=== PATIENT | female | born 1960 | race Caucasian/White ===

== ENCOUNTER 2024-06-01 08:29 | Outpatient (REF) | payer OTHER, SELFPAY ==
--- NOTE | ~2024-06-01 | XR_ITS ---
EXAMINATION: XR KNEE, LEFT XR KNEE AP STANDING CLINICAL INFORMATION: Pain. COMPARISON: None TECHNIQUE: Lateral and axial views of the left knee were obtained. AP bilateral standing view of the knees was obtained. FINDINGS: Bony alignment and mineralization are normal. The lateral and medial joint space compartments of the right knee are well-maintained. The medial joint space compartment of the left knee is mildly narrowed. The left lateral and patellofemoral compartments are well-maintained. No fracture, dislocation or left knee joint effusion is seen. There is no significant varus or valgus configuration. There are atherosclerotic calcifications of the bilateral thighs. No foreign body is seen. XR/XR knee RT 1V IMPRESSION: 1. No fracture, dislocation or left knee joint effusion is seen. 2. The lateral and medial joint space compartments of the right knee are well-maintained. 3. There is mild osteoarthritic change of the medial joint space compartment of the left knee. Electronically signed by: Wicho Peterson MD 06/28/2024 07:32 PM EDT
--- NOTE | ~2024-06-01 | XR_ITS ---
EXAMINATION: XR KNEE, LEFT XR KNEE AP STANDING CLINICAL INFORMATION: Pain. COMPARISON: None TECHNIQUE: Lateral and axial views of the left knee were obtained. AP bilateral standing view of the knees was obtained. FINDINGS: Bony alignment and mineralization are normal. The lateral and medial joint space compartments of the right knee are well-maintained. The medial joint space compartment of the left knee is mildly narrowed. The left lateral and patellofemoral compartments are well-maintained. No fracture, dislocation or left knee joint effusion is seen. There is no significant varus or valgus configuration. There are atherosclerotic calcifications of the bilateral thighs. No foreign body is seen. XR/XR knee LT 3V IMPRESSION: 1. No fracture, dislocation or left knee joint effusion is seen. 2. The lateral and medial joint space compartments of the right knee are well-maintained. 3. There is mild osteoarthritic change of the medial joint space compartment of the left knee. Electronically signed by: Wicho Peterson MD 06/28/2024 07:32 PM EDT
== END 2024-06-01 08:30 | disposition home or self-care (01) ==
LOC: HO.HOSX 08:29
PROVIDERS: Visit Provider Physician Assistant
DX: M25.562 Pain in left knee (principal); M25.561 Pain in right knee; S83.207A Unspecified tear of unspecified meniscus, current injury, left knee, initial encounter; M17.0 Bilateral primary osteoarthritis of knee
CPT/HCPCS: 20610; 73560; 73562; J1010

== ENCOUNTER 2024-06-01 09:34 | Outpatient (AMB) | payer OTHER, SELFPAY ==
--- NOTE | 2024-06-01 09:52 | MHC.OFFVIS ---
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 MRI done. Patient reports pain for about 2 years that she believes is from falling on her knee, she also slipped that same day. She has ongoing pain that is located around her kneecap and radiates down her leg. States her knee frequently gives out. Finds no relief with ibuprofen. Allergies nitroglycerin [NITROGLYCERIN] Allergy (Unknown, Unverified 07/04/20 16:44) BOTTOMS OUT BP pregabalin [From LYRICA] Allergy (Unknown, Unverified 07/04/20 16:44) DEPRESSION bee stings Allergy (Uncoded 06/01/24 10:11) swelling, syncope HPI HPI FINANCIAL COUNSELOR- Left medial meniscus tear: Details: 64-year-old female who presents to the office today for an evaluation of left knee pain. She reports she has pain for about 2 years that is believes is from falling on her knee and also slipped that same day. She currently states she has ongoing pain and swelling around her kneecap and radiates down her leg. Her pain is aggravated with prolonged standing and getting up from sitting. She also mentions her knee frequently gives out. She finds no relief with ibuprofen. [facility] Surgical History (Updated 06/01/24 @ 10:13 by DAVID Mark) Hx of neck surgery History of surgery on upper extremity Hx of foot surgery Hx of appendectomy Hx of cholecystectomy History of section Social History (Updated 06/01/24 @ 10:13 by DAVID Mark) Patient Tobacco Use Status: Former Tobacco user Current occupational status: unemployed Review of Systems Const All systems reviewed & are unremarkable except as noted in HPI and below Physical Exam Vital Signs: BMI result Body Mass Index 30.7 Const General: cooperative, healthy appearing, comfortable, no acute distress, well developed and alert Orientation/consciousness: patient oriented x3 HEENT Head: Yes normal to inspection, Yes normocephalic and Yes atraumatic Eyes General: appearance normal, both eyes and all related structures Resp Effort & Inspection: normal respiratory effort and able to speak in complete sentences Cardio Rate: regular rate Peripheral pulses: Peripheral pulses 2+ throughout GI Palpation (GI): Soft to palpation Skin Lesions: no lesions Rashes: no rashes Neuro General: patient oriented x3 Extrem Other: Left knee: Skin intact, no erythema or joint effusion. Tenderness along the medial and lateral joint line. Full ROM with crepitus. Positive Jeremy?s. No ligamentous laxity. NVI. ? Office Procedures Joint Injection/Aspiration Joint Injection/Aspiration Primary Site: left knee Prep: site was prepped using aseptic technique, ethochloride spray was applied and injection warnings given Injected: 80 mg of, DepoMedrol, with 8 mL of, 1% plain lidocaine and in the joint Approach Used: anterolateral Procedure: The patient tolerated the procedure well and there was some relief with the local anesthesia Coding 07382 - Glenohumeral/Tronchanteric Bursa/Intraarticular Procedure code (CPT) selection complete Results Reviewed Results Reviewed: Xrays were obtained in the office today and personally reviewed by me of the let knee show moderate oa Left knee MRI 10/12/23 Assessment & Plan Assessment & Plan (1) Osteoarthritis of left knee: Code(s): M17.12 - Unilateral primary osteoarthritis, left knee Category: Medical (2) Tear of meniscus of left knee: Code(s): S83.207A - Unspecified tear of unspecified meniscus, current injury, left knee, initial encounter Category: Medical Plan I saw and evaluated the patinet. She has both OA and a root tear and we discussed options today which include surgical vs nonsurgical management. Root repair is contra indicated given age and OA and TKA is too agressive given surrent symptoms. Knee with meniscectomy may benefit her but it may not and she is not interested in taking sucha a chance. I recommend inejction and continue activity as tolerated. The patient did consent to move forward with the left knee injection, which was tolerated well. I recommended rest, ice, and elevation and OTC anti-inflammatories as needed for discomfort. If symptoms persist or worsen over the next 6-8 weeks, patient will contact the office, otherwise follow-up as needed. Orders: Orders XR knee LT 3V 06/01/24 M25.562 - Pain in left knee XR knee RT 1V 06/01/24 M25.561 - Pain in right knee Patient Instructions: Scribed for Ta-Maribel Cespedes PA-C, by Charlie Carrera certified ophthalmic medical technician, on 06/01/2024 at 10:00 AM EST.? I, Astrid Cespedes PA-C, have personally reviewed and agree with the information entered by the scribe. Coding Level of Care Code New Pt Level 4 (10960) Diagnoses Osteoarthritis of left knee M17.12 Tear of meniscus of left knee S83.207A CPT Codes Coding - Joint 7: 04705 - Glenohumeral/Tronchanteric Bursa/Intraarticular ([id number])
[2024-06-01 10:18] VITALS: BMI 30.7
== END 2024-06-01 11:09 | disposition home or self-care (01) ==
PROVIDERS: PCP Internal Medicine; Visit Provider Physician Assistant
DX: M17.12 Unilateral primary osteoarthritis, left knee (principal); S83.207A Unspecified tear of unspecified meniscus, current injury, left knee, initial encounter
CPT/HCPCS: 20610; 99203

== ENCOUNTER 2024-10-06 08:01 | Outpatient (REF) | payer OTHER, SELFPAY ==
--- OUTSIDE RECORDS SUMMARY | 2024-10-06 08:03 | XMS_ITS | Data Portability ---
Author Organization [facility], [address] Address [address] [place] [address] Care Team Providers Care Set Decorator Name Role Phone CAROL FERNANDO Primary Care Provider Assessment No assessment recorded. Plan of Treatment Reminders Order Date Submit Date Provider Last Modified By Organization Details Last Modified Time Details Appointments None recorded. Lab None recorded. Referral emergency medicine referral - fall and injured right shoulder and right sided chest wall pain . no acute fracture seen but patient is in too much pain and having difficulty taking deep breath. need further evaluation and treatment. 2022 023 [facility] Emergency Room, [address] [place], [address], 09:56:38 Procedures None recorded. Surgeries None recorded. Imaging XR, ribs, unilateral, w/ PA chest 2022 023 [facility], [address] [place] [address], [address], 09:53:28 Medication Orders None recorded. Patient TargetsNo targets recorded. Patient Instructions Encounter Date Encounter Id Patient Instructions Last Modified By Organization Details Last Modified Time 05/13/2023 [id number] Elevate injured extremity to help decrease swelling Ice the area 15 minutes every 3-4 hours ibuprofen and/or tylenol as needed for pain Follow up with [facility] or your pcp if the injury fails to heal in the coming weeks [email or web address] Not available 05/13/2023 08:49:17 Go to Emergency room with any shortness of breath Go to the Emergency Room immediately if your symptoms worsen or you develop new symptoms that concern you. We recommend that you follow up with your primary care physician within one week. Failure to follow up as recommended may result in significant adverse health consequences. It is not uncommon for antibiotics to cause diarrhea and/or yeast infections Consider the addition of probiotics and/or yogurt to your diet to help prevent or lessen the adverse effects of these medications. Apply ice to area several times daily Avoid shallow breathing and take several deep breaths per hour so as not to develop Pneumonia [email or web address] Not available 05/13/2023 08:49:26 Reason for Referral Emergency Medicine Referral for Anterior chest wall pain fall and injured right shoulder and right sided chest wall pain . no acute fracture seen but patient fall and injured right shoulder and right sided chest wall pain . no acute fracture seen but patient is in too much pain and having difficulty taking deep breath. need further evaluation and treatment. Referring Physician: Jong Herrmann, Urgent Care, Encounter Date: 05/13/2023 Results Created Date Observation Date Name Description Value Unit Range Abnormal Flag Note LastModifiedBy Organization Detail LastModifiedTime 05/13/2005/13/2023 XR, ribs, unila teral , w/ PA chest No observ ation record ed. [email or web address] [facility] [address] [place], [address], 05/13/2023 10:52:14 05/13/20 23 05/13/2023 XR, ribs, unila teral , w/ PA chest No observ ation record ed. [email or web address] [facility] [address] [place], [address], 05/13/2023 10:52:14 05/13/20 XR, ribs, unila teral , w/ PA chest No observ ation record ed. [facility] [address] [place], [address], 05/13/2023 13:50:19 Result Notes None recorded. Problems Name Problem SNOMED Code Status Onset Date Resolution Date Notes Provider Name and Address Organization Details Recorded Time Myocardial infarction 07314126 Completed 05/13/2023 Josie Ruszala null, PA - [facility] 08:15:37 Irritable bowel syndrome 52355063 Active Josie Ruszala null, PA - [facility] 3 08:15:44 Depressive disorder 91668769 Active Josie Ruszala null, PA - [facility] 08:15:50 Degeneratio n of spine 512749458 Active Josie Ruszala null, PA - [facility] 3 08:15:59 Ulcerative colitis 84443248 Active Josie Ruszala null, PA - [facility] 08:16:07 Acid reflux 158829055 Active Josie Ruszala null, PA - [facility] 08:16:14 Problem Notes None recorded. Procedures Surgical History Date Name Laterality Status Provider Name and Address Organization Details Recorded Time delivery completed Josie Ruszala PA - [facility] 05/13/2023 08:16:57 procedure on elbow completed Josie Ruszala PA - [facility] 05/13/2023 08:17:15 Appendectomy completed Josie Ruszala PA - [facility] 05/13/2023 08:17:20 cholecystectomy completed Josie Ruszala PA - [facility] 05/13/2023 08:17:33 hysterectomy completed Josie Ruszala PA - [facility] 05/13/2023 08:17:42 Imaging Results Imaging Date Name Status [facility]Modified by [facility] Details LastModified Time 05/13/2023 XR, ribs, unilateral, w/ PA chest completed [email or web address] [facility] [address] [place], [address], 05/13/2023 10:52:14 05/13/2023 XR, ribs, unilateral, w/ PA chest completed [email or web address] [facility] [address] [place], [address], 05/13/2023 10:52:14 05/13/2023 XR, ribs, unilateral, w/ PA chest completed [facility] [address] [facility] [place], [address], 05/13/2023 13:50:19 Procedure Notes None recorded. Medical Equipment None Reported. Allergies Allergen ID Allergen Name Allergen Category Reaction Reaction Severity Criticality Documentation Date Start Date Code Code System Note Provider Name and Address Organization Details Recorded Time 528660 Lyrica medicatio n Not available Not available Not available 05/13/2023 58447 1 RxNorm [facility] 3 08:12:54 841134 hornet venom environme nt Not available Not available Not available 05/13/2023 [facility] 08:13:00 Medications Name Sig Start Date Stop Date Status Note LastModified by Organization Details LastModified Time carisoprodo l 350 mg tablet active Not Available Not Available Not Available gabapentin 600 mg tablet active Not Available Not Available Not Available doxycycline hyclate 100 mg capsule TAKE ONE CAPSULE BY MOUTH TWICE A DAY WITH FOOD FOR 5 DAYS 05/13 completed Not Available Not Available Not Available ibuprofen 800 mg tablet active Not Available Not Available Not Available fluconazole 200 mg tablet TAKE ONE TABLET BY MOUTH ONE TIME DAILY FOR 1 DAY 05/13 completed Not Available Not Available Not Available meloxicam 15 mg tablet TAKE 1 TABLET BY MOUTH EVERY DAY 05/13 completed Not Available Not Available Not Available minoxidil 2.5 mg tablet active Not Available Not Available Not Available magnesium oxide 400 mg (241.3 mg magnesium) tablet TAKE 1 TABLET BY MOUTH EVERY DAY active Not Available Not Available No t Available lorazepam 0.5 mg tablet active Not Available Not Available Not Available pantoprazol e 40 mg tablet,leonardo yed release active Not Available Not Available Not Available metoprolol tartrate 50 mg tablet active Not Available Not Available No t Available budesonide DR - ER 3 mg capsule,del ayed,extend ed release TAKE 3 CAPSULES BY MOUTH DAILY IN THE MORNING FOR 90 DAYS active Not Available Not Available No t Available paroxetine 40 mg tablet active Not Available Not Available Not Available diclofenac 1 % topical gel APPLY 4 GM TOPICALLY 4 TIMES A DAY NEEDED FOR PAIN, MODERATE 07/27 /2023 completed Not Available Not Available Not Available Vitals Date Recorded Body height Body mass index (BMI) Body weight Oxygen saturation Oxygen saturation in Arterial blood by Pulse oximetry Heart rate Respiratory rate Body temperature Systolic blood pressure Diastolic blood pressure Provider Name and Address Organization Details Last Updated DateTime 167.64 cm 29.1 kg/m2 18716.6 3 g 98 % 98 % 66 /min 20 /min 97.7 [degF] 129 mm[Hg] 80 mm[Hg] Josie Paz PA [facility] 08:21:51 Social History Question Answer Notes LastModified by iContact ion Details LastModified Time Tobacco Smoking Status Never Smoker Josie lorenzana PA [facility] 05/13/2023 08:16:45 What Is Your Level Of Alcohol Consumption? None Information not available 05/13/2023 Have You Had Direct Contact, Or Contact During Intimacy, With Monkeypox Rash, Scabs, Or Body Fluids From A Person With Monkeypox? No Information not available 05/13/2023 Do You Use Any Illicit Or Recreational Drugs? No Information not available 05/13/2023 Have You Recently Traveled Abroad? No Information not available 05/13/2023 Sex: Unknown Functional Status None recorded. Mental Status None recorded. Family History Relationship Description Onset Age of this Age Resolved Age Notes LastModified by Organization Details LastModified Time Unspecified Relation Heart disease nruszala Not available 2022 08:16:39 Medical History No medical history recorded. Gynecological History Statement/Question Response Date of LMP Obstetrics History GPAL:G 0 P 0 0 0 0 Past Encounters Encounter ID Performer Location Encounter Start Date Encounter Closed Date Diagnosis/Indication Diagnosis SNOMED-CT Code Diagnosis ICD10 Code [id number] [address] [address] 09/05/2015 11:19:29 09/05/2015 11:44:31 [id number] Jong Herrmann NP [address] [facility] [address] [place] [address] 05/13/2023 08:04:58 05/13/2023 09:53:28 Contusion of right chest wall 7506331856 9262954 S20.211A Sprain of shoulder 26598 01 S43.401A Anterior c hest wall pain 830020728 R07.89 Health Concerns Section Related Observation LastModified by Organization Detai ls LastModified Time None Recorded Concern Status LastModified by Organization Details LastModified Time None Recorded Advance Directives Directive None Recorded Payers Encounter Date Sequence Insurance Name Policy Number Policy Taylor Covered Member ID Taylor Member ID Guarantor Name 09/05/2015 1 [employer] [place] [id number] Neri A Kurtis [id number] Leticia Hull 05/13/2023 1 [employer] [place] [id number] Neri Kunz Kurtis [id number] Leticia Hull Notes Date Note Type Note Provider Name and Address Organization Details Recorded Time 05/13/2023 text/html Ribs / Chest WallReported bypatient.Method of ArrivalPatient arrived at Urgent Care ambulatory; learning styles: auditory Location:chest wall; anterior; right Quality:aching;tende r; constant; worsening Onset/Timing:actual date 05/12/2023 Context:fall Aggravating factors:activity; lifting; twisting; changing clothes; worse with inspiration Alleviating factors:nothing helps Associated Symptoms:hurts to breath;can't get a deep breath Patient stated she fell yesterday at home and hit her right upper side now have pain in right breast and ribs . Jong Herrmann NP [address] [place], [address], PA - [facility] 05/13/2023 10:14:11 OBGyn Episode No OBEpisode recorded.
== END 2024-10-06 08:02 | disposition home or self-care (01) ==
LOC: HO.HOSX 08:01
DX: M25.532 Pain in left wrist (principal)
CPT/HCPCS: 73110

== ENCOUNTER 2024-10-06 09:46 | Outpatient (AMB) | payer OTHER, SELFPAY ==
[2024-10-06 10:01] VITALS: BMI 30.7
--- NOTE | 2024-10-06 10:01 | A.OFFVIS_ITS ---
Vital Signs 10/06/24 10:01 Height 5 ft 6 in Weight 190 lb BMI 30.7 Intake Visit Reasons: New Prob: Left wrist FX DOI: 09/20/24 Intake Note: Leticia is a 64 year old right hand dominant female who presents today for a fracture care visit for her left wrist s/p fall DOI: 09/20/24. Patient reports she fell on an outstretched left hand and her knees. Patient reports that she has an immediate onset of pain. She was seen at an urgent care the night of the injury, and placed her in a thumb spica velcro wirst brace. She is taking 800Mg ibuprofen for her pain which helps. Occasional numbness and tingling in the thumb and small finger. She reports that her pain is felt on the dorsal aspect of the hand more focused on the ulnar side. She also has pain along the distal a spect of the forearm. Allergies nitroglycerin [NITROGLYCERIN] Allergy (Unknown, Unverified 07/04/20 16:44) BOTTOMS OUT BP pregabalin [From LYRICA] Allergy (Unknown, Unverified 07/04/20 16:44) DEPRESSION bee stings Allergy (Uncoded 06/01/24 10:11) swelling, syncope HPI HPI New Prob: Left wrist FX DOI: 09/20/24: Details: Leticia is a 64 year old right hand dominant female who presents today for a fracture care visit for her left wrist s/p fall DOI: 09/20/24. Patient reports she fell on an outstretched left hand and her knees. Patient reports that she has an immediate onset of pain. She was seen at an urgent care the night of the injury, and placed her in a thumb spica velcro wirst brace. She is taking 800Mg ibuprofen for her pain which helps. Occasional numbness and tingling in the thumb and small finger. She reports that her pain is felt on the dorsal aspect of the hand more focused on the ulnar side. She also has pain along the distal aspect of the forearm. [facility] Surgical History Hx of neck surgery History of surgery on upper extremity Hx of foot surgery Hx of appendectomy Hx of cholecystectomy History of section Social History Patient Tobacco Use Status: Former Tobacco user Current occupational status: unemployed Review of Systems Const All systems reviewed & are unremarkable except as noted in HPI and below Physical Exam Vital Signs: BMI result Body Mass Index 30.7 Extrem Other: Patient is alert, oriented, and in no acute distress. Neuro: Normal sensation of the tips of all digits of the left hand at this time Vascular: Cap refill brisk Pain: Patient reports tenderness to palpation at the level of the trapezium both dorsal and volar in the left wrist, as well as in the ulnar aspect of the patient's left wrist at the level of the base of the 5th metacarpal Patient also reports discomfort with making a closed fist with the left hand No anatomical snuffbox tenderness or tenderness of the scaphoid tubercle ROM: Patient is able to make a closed fist and extend all digits of the left hand Skin: No lacerations or abrasions. General: No ecchymosis, erythema, or evidence of infection. Psych: Appears grossly normal Affect normal Attitude cooperative Office Procedures AMB Fracture Care Details: Left 5th metacarpal base avulsion fracture Left trapezium avulsion fracture Fracture Billing Code: Fracture Billing Code Results Reviewed Results Reviewed: X-rays obtained in the office today and independently reviewed by me, Anoop Grant PA-C, demonstrate small avulsion fracture off of the posterior aspect of the trapezium of the left wrist, as well as a small avulsion fracture off of the 5th metacarpal base of the left hand. Assessment & Plan Assessment & Plan (1) Fracture of trapezium of left wrist: Code(s): S62.172A - Displaced fracture of trapezium [larger multangular], left wrist, initial encounter for closed fracture Category: Medical (2) Nondisplaced fracture of base of fifth metacarpal bone, left hand, sequela: Code(s): S62.347S - Nondisplaced fracture of base of fifth metacarpal bone, left hand, sequela Category: Medical Plan 1. Avulsion fracture of the left trapezium 2. Avulsion fracture of base of left 5th metacarpal Patient is educated about the surgery Patient is educated about the typical recovery course This time, patient was informed that she should continue wearing in the prefabricated thumb spica brace like a cast for a further 2 weeks, only removing for bathing Patient is educated that she should continue making a closed fist with this brace on to promote good range of motion of the left hand Patient was amenable to this plan Patient will follow-up in 2 weeks with repeat x-rays for reassessment, sooner with any acute concerns Orders: Orders XR wrist LT w scaphoid Today M25.532 - Pain in left wrist Coding Level of Care Code New Pt Level 3 (36154) Diagnoses Fracture of trapezium of left wrist S62.172A Nondisplaced fracture of base of fifth metacarpal bone, left hand, sequela S62.347S CPT Codes Fracture Care - Fracture Billing Code: Fracture Billing Code ([id number])
== END 2024-10-06 10:19 | disposition home or self-care (01) ==
PROVIDERS: PCP Internal Medicine
DX: S62.172A Displaced fracture of trapezium [larger multangular], left wrist, initial encounter for closed fracture (principal); S62.347A Nondisplaced fracture of base of fifth metacarpal bone, left hand, initial encounter for closed fracture
CPT/HCPCS: 99203

== ENCOUNTER 2024-10-20 08:24 | Outpatient (REF) | payer OTHER, SELFPAY | END 2024-10-20 08:25 | disposition home or self-care (01) | LOC: HO.HOSX 08:24 | DX: Z13.89 Encounter for screening for other disorder (principal) ==

== ENCOUNTER 2024-10-23 08:15 | Outpatient (REF) | payer OTHER, SELFPAY ==
--- NOTE | ~2024-10-23 | XR_ITS ---
EXAMINATION: XR WRIST NAVICULAR LEFT HISTORY: M25.532 - Pain in left wrist COMPARISON: Comparison is made with the prior examination dated 10/06/2024. FINDINGS: Four views of the left wrist including a scaphoid view are submitted. Osseous mineralization is normal. There is no fracture or dislocation. The joint spaces are preserved. The soft tissues are unremarkable. XR/XR wrist LT w scaphoid IMPRESSION: Unremarkable examination of the left wrist. Electronically signed by: Dandre Steen MD 10/26/2024 09:47 AM EST
--- OUTSIDE RECORDS SUMMARY | 2024-10-23 08:30 | XMS_ITS | Data Portability ---
Author Organization [facility], [address] Address [address] [place] [address] Care Team Providers Care Flight Security Specialist Name Role Phone CAROL FERNANDO Primary Care Provider [phone] Assessment No assessment recorded. Plan of Treatment [...] need further evaluation and treatment. 2022 023 [facility] Emergency Room, [address] [place], [address], 09:56:38 Procedures None recorded. Surgeries None recorded. Imaging XR, ribs, unilateral, w/ PA chest 2022 023 [email or web address], [address] [place] [address], [address], 09:53:28 Medication Orders None recorded. Patient TargetsNo targets recorded. Patient Instructions Encounter Date Encounter Id Patient Instructions Last Modified By Organization Details Last Modified Time 05/13/2023 [id number] Elevate injured extremity to help decrease swelling [...] ed. [email or web address] [facility] [address] [place], [address], 05/13/2023 10:52:14 05/13/20 23 05/13/2023 XR, ribs, unila teral , w/ PA chest No observ ation record ed. [email or web address] [facility] [address] [place], [address], 05/13/2023 10:52:14 05/13/20 XR, ribs, unila teral , w/ PA chest No observ ation record ed. [facility] [address] [place], [address], 05/13/2023 13:50:19 Result Notes None recorded. Problems Name Problem SNOMED Code Status Onset Date Resolution Date Notes Provider Name and Address Organization Details Recorded Time Myocardial infarction 03268106 Completed 05/13/2023 Josie Ruszala null, PA - [facility] 3 08:15:37 Irritable bowel syndrome 29690099 Active Josie Ruszala null, PA - [facility] 3 08:15:44 Depressive disorder 08460499 Active Ojsie Ruszala null, PA - [facility] 08:15:50 Degeneratio n of spine 028446251 Active Josie Ruszala null, PA - [facility] 3 08:15:59 Ulcerative colitis 54289916 Active Josie Ruszala null, PA - [facility] 08:16:07 Acid reflux 570994139 Active Josie Ruszala null, [facility] - [facility] [...] Imaging Date Name Status [facility]Modified by [facility] Details LastModified Time 05/13/2023 XR, ribs, unilateral, w/ PA chest completed [email or web address] [address] [place], [address], 05/13/2023 10:52:14 05/13/2023 XR, ribs, unilateral, w/ PA chest completed [email or web address] [facility] [address] [place], [address], 05/13/2023 10:52:14 05/13/2023 XR, ribs, unilateral, w/ PA chest completed [facility] [address] [facility] [place], [address], 05/13/2023 13:50:19 Procedure Notes None recorded. Medical Equipment None Reported. Allergies Allergen ID Allergen Name Allergen Category Reaction Reaction Severity Criticality Documentation Date Start Date Code Code System Note Provider Name and Address Organization Details Recorded Time 751708 Lyrica medicatio n Not available Not available Not available 05/13/2023 48911 1 RxNorm [facility] 3 08:12:54 621904 hornet venom environme nt Not available Not [...] Last Updated DateTime 167.64 cm 29.1 kg/m2 70468.6 3 g 98 % 98 % 66 /min 20 /min 97.7 [degF] 129 mm[Hg] 80 mm[Hg] Josie Paz [facility] 08:21:51 Social History Question Answer Notes LastModified by [employer] ion Details LastModified Time Tobacco Smoking Status Never Smoker Josie lorenzana PA [facility] 05/13/2023 08:16:45 What Is Your Level [...] Diagnosis/Indication Diagnosis SNOMED-CT Code Diagnosis ICD10 Code Diagnosis Note [id number] [address] [address] 09/05/2015 11:19:29 09/05/2015 11:44:31 [id number] Jong Herrmann [facility] [address] [address] [place] [address] 05/13/2023 08:04:58 05/13/2023 09:53:28 Contusion of right chest wall 7370103577 6320296 S20.211A Sprain of shoulder 33002 01 S43.401A Anterior c hest wall pain 191496194 R07.89 Health Concerns Section Related Observation LastModified by Organization Detai ls LastModified Time None Recorded Concern Status LastModified by Organization Details LastModified Time None Recorded Advance Directives Directive None Recorded Payers Encounter Date Sequence Insurance Name Policy Number Policy Taylor Covered Member ID Taylor Member ID Guarantor Name 09/05/2015 1 [employer] [place] [place] [id number] Neri A Kurtis [id number] 05/13/2023 1 [employer] [place] [id number] Neri Kunz Kurtis [id number] [address] Notes Date Note Type [...] Herrmann NP [address] [place], [address], PA - [facility] 05/13/2023 10:14:11 OBGyn Episode No OBEpisode recorded.
== END 2024-10-23 08:16 | disposition home or self-care (01) ==
LOC: HO.HOSX 08:15
DX: M25.532 Pain in left wrist (principal)
CPT/HCPCS: 73110

== ENCOUNTER 2024-10-23 15:19 | Outpatient (AMB) | payer OTHER, SELFPAY ==
--- NOTE | 2024-10-23 15:19 | A.OFFVIS_ITS ---
Intake Visit Reasons: OV: LT wrist FX DOI: 09/20/24-w/xray Intake Note: Leticia is a 64 year old right hand dominant female who presents today for a follow up visit for her fracture of trapezium of left wrist s/p fall DOI: 09/20/2024. Patient reports she is feeling better, however she still feels a bit sore in her wrist. She did mention that she lost her brace and her ROM has gotten a bit better but still limited. Allergies nitroglycerin [NITROGLYCERIN] Allergy (Unknown, Verified 10/23/24 15:39) BOTTOMS OUT BP pregabalin [From [facility]] Allergy (Unknown, Verified 10/23/24 15:39) DEPRESSION bee stings Allergy (Uncoded 06/01/24 10:11) swelling, syncope HPI Comments Details: Patient is a 64-year-old female who presents for follow-up evaluation of left trapezium fracture and left nondisplaced 5th metacarpal base fracture, DOI 09/20/24. Today, the patient reports that she is feeling well, and that she is not experiencing any pain in the left wrist at baseline. Patient reports that she does have some pain with range of motion, but this is only occasional. The patient does report that she lost the Velcro wrist splint that she had purchased. Denies any numbness or tingling in the left hand. No other acute complaints or concerns at this time. [facility] Surgical History Hx of neck surgery History of surgery on upper extremity Hx of foot surgery Hx of appendectomy Hx of cholecystectomy History of section Social History Patient Tobacco Use Status: Former Tobacco user Current occupational status: unemployed Review of Systems Const All systems reviewed & are unremarkable except as noted in HPI and below Physical Exam Extrem Other: Patient is alert, oriented, and in no acute distress. Neuro: Normal sensation of the tips of all digits of the left hand at this time Vascular: Cap refill brisk Pain: Patient reports No tenderness to palpation at the level of the trapezium both dorsal and volar in the left wrist, as well no tenderness in the ulnar aspect of the patient's left wrist at the level of the base of the 5th metacarpal no discomfort with range of motion No anatomical snuffbox tenderness or tenderness of the scaphoid tubercle ROM: Patient is able to make a closed fist and extend all digits of the left hand Skin: No lacerations or abrasions. General: No ecchymosis, erythema, or evidence of infection. Psych: Appears grossly normal Affect normal Attitude cooperative Results Reviewed Results Reviewed: X-rays obtained in the office today and independently reviewed by me, Anoop Grant PA-C, demonstrate small avulsion fracture off of the posterior aspect of the trapezium of the left wrist, as well as a small avulsion fracture off of the 5th metacarpal base of the left hand with evidence of interval bony healing. Assessment & Plan Assessment & Plan (1) Fracture of trapezium of left wrist: Code(s): S62.172A - Displaced fracture of trapezium [larger multangular], left wrist, initial encounter for closed fracture Category: Medical (2) Nondisplaced fracture of base of fifth metacarpal bone, left hand, sequela: Code(s): S62.347S - Nondisplaced fracture of base of fifth metacarpal bone, left hand, sequela Category: Medical Plan 1. Avulsion fracture of the left trapezium 2. Avulsion fracture of base of left 5th metacarpal Patient is educated about the surgery Patient is educated about the typical recovery course This time, patient was informed that she we will be provided with a Velcro wrist splint to be worn with daytime activities at this time, however she should remove this while at rest and while bathing and sleeping for range of motion Patient is educated that she should continue making a closed fist with this brace on to promote good range of motion of the left hand Patient was amenable to this plan Patient will follow-up in 4 weeks with repeat x-rays for reassessment, sooner with any acute concerns Orders: Orders XR wrist LT w scaphoid 10/23/24 M25.532 - Pain in left wrist Coding Level of Care Code Global (20490) Diagnoses Fracture of trapezium of left wrist S62.172A Nondisplaced fracture of base of fifth metacarpal bone, left hand, sequela S62.347S
== END 2024-10-23 15:53 | disposition home or self-care (01) ==
PROVIDERS: PCP Internal Medicine
DX: S62.172A Displaced fracture of trapezium [larger multangular], left wrist, initial encounter for closed fracture (principal); S62.347 Nondisplaced fracture of base of fifth metacarpal bone, left hand
CPT/HCPCS: 99213